=== PATIENT | male | born 1985 ===

== ENCOUNTER 2021-02-10 10:58 | Emergency (ER) | payer SELFPAY ==
[~2021-02-10] VITALS: Ht 175.3 cm; Wt 81.8 kg
[2021-02-10 11:00] VITALS: BP 132/70
[2021-02-10 12:51] LABS: COVID AG,FIA SOURCE NASOPHARYNGEAL
== END 2021-02-10 13:51 | disposition home or self-care (01) ==
LOC: EMS 10:58
DX: Z20.822 Contact with and (suspected) exposure to COVID-19 (principal)
CPT/HCPCS: 99283